=== PATIENT | male | born 1985 | race Caucasian/White ===

== ENCOUNTER 2018-07-25 16:16 | Emergency (ER) | payer OTHER ==
[~2018-07-25] VITALS: Ht 190.5 cm; Wt 136.1 kg
[2018-07-25 16:49] LABS: ABSOLUTE NEUTROPHILS 7.1 thou/uL (1.4-8.2); EOSINOPHILS 3.2 % (0.0-3.0); HEMATOCRIT 43.2 % (42.0-52.0); HEMOGLOBIN 15.2 gm/dL (14.0-18.0); LYMPHOCYTES 27.2 % (24.0-44.0); MCH 33.7 pg (26.0-34.0); MCHC 35.1 g/dL (28.0-37.0); MCV 96.2 fL (80.0-100.0); MONOCYTES 10.7 % (1.0-8.0); PLATELET COUNT 405 thou/uL (150-400); POLYS 57.9 % (36.0-66.0); RBC 4.49 mil/uL (4.50-6.00); RDW 12.6 % (10.5-14.5); WBC 12.2 thou/uL (4.0-11.0)
[2018-07-25 16:56] LABS: CALCIUM 9.9 mg/dL (8.5-10.1); CREATININE 0.9 mg/dL (0.7-1.3); POTASSIUM 4.1 mmol/L (3.5-5.1)
[2018-07-25 17:02] LABS: TOTAL BILIRUBIN 0.3 mg/dL (<0.1-1.0); TOTAL PROTEIN 7.8 g/dL (6.4-8.2)
[2018-07-25 18:05] LABS: URINE BILIRUBIN NEGATIVE (Negative); URINE BLOOD NEGATIVE (Negative); URINE CLARITY CLEAR; URINE COLOR YELLOW; URINE GLUCOSE-RANDOM* NEGATIVE (Negative); URINE KETONES TRACE (Negative); URINE LEUKOCYTES-REFLEX NEGATIVE (Negative); URINE NITRITE-REFLEX NEGATIVE (Negative); URINE PROTEIN (DIPSTICK) NEGATIVE (Negative); URINE SPECIFIC GRAVITY >= 1.030 (1.005-1.035); URINE UROBILINOGEN 0.2 E.U./dl (0.2-1.0)
[2018-07-25] MEDS ORDERED: ANTIVERT25 MG PO (21:09)
[2018-07-25 21:20] VITALS: BP 143/87
--- NOTE | 2018-07-26 07:55 | EKG ---
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: JOSE : 1985 Requested By: Mary Alcaraz Order Number: [id number] MD: Benedicto Schmidt Measurements Intervals [place] Rate: 91 P: 34 WA: 155 QRS: -17 QRSD: 100 T: 10 QT: 350 QTc: 431 Interpretive Statements Sinus rhythm Inferior infarct, old No previous ECG available for comparison Electronically Signed On 07-26-2018 7:55:19 CDT by Benedicto Schmidt [email or web address] ��������������������������������������������� <ELECTRONICALLY SIGNED> ���������������������������������������� By: Benedicto Schmidt MD, [facility] ��������������������������������������������� 07/26/18 [id number] Benedicto Schmidt MD, FACC /EPI
== END 2018-07-25 21:20 | disposition home or self-care (01) ==
LOC: ER 16:16
PROVIDERS: Nurse Practitioner Family
DX: R42 Dizziness and giddiness (principal); Z88.0 Allergy status to penicillin